=== PATIENT | male | born 1995 | race Two or more races ===

== ENCOUNTER 2017-01-03 16:10 | Emergency (ER) | payer OTHER ==
[2017-01-03 16:16] VITALS: BP 139/67; PULSE 68; RESP 16; TEMP 97.7; O2SAT 97
--- NOTE | 2017-01-03 16:26 | EDPHY ---
General Narrative: CHIEF COMPLAINT: Left ankle pain HISTORY OF PRESENT ILLNESS: Patient is playing soccer 2 days ago. When he jumped he landed awkwardly on the left ankle, likely inverting it. Since then he has had pain over the medial and lateral ankle. No pain in the left midfoot. No pain left heel. Two days ago was swollen and too severe to walk on. Today it is mildly improved. Able to walk if he uses only his heel. No numbness or tingling. No pain in the left knee or proximal fibula. No fall or trauma elsewhere. No other associated complaints or modifying factors. ESTABLISHED ORTHOPEDIST: None REVIEW OF SYSTEMS: Ten systems reviewed and are negative unless otherwise noted in the HPI PAST MEDICAL HISTORY: None PAST SURGICAL HISTORY: None SOCIAL HISTORY: Nonsmoker. Student at [employer]. FAMILY HISTORY: Noncontributory EXAMINATION General Appearance: Alert, no distress Cardiovascular: Pulses normal throughout. Symmetric DP pulses 2+. Symmetric PT pulses 2+. Brisk cap refill Neurological: A&O, great toe sensory symmetric. Ankle strength symmetric. No footdrop. Skin: Warm and dry, no rash. No laceration or puncture. No abrasion. No cellulitis or ecchymosis. Extremities: Tenderness over the left medial malleolus and left lateral malleolus. No left midfoot tenderness. No left heel tenderness. No tenderness of the left proximal fibula. Range of motion of the left ankle is symmetric to the right but painful. Neurovascular intact distal to the area of pain Psychiatric: Mood and affect normal DIFFERENTIAL DIAGNOSES: Including but not limited to ankle sprain, fracture, dislocation MDM: 4:20 p.m. Acute sprain of the left ankle from injury 2 days ago. X-ray has been ordered as he has difficulty ambulating on it without pain. Neurovascular intact. No injury to the left foot, heel or proximal fibula. No acute distress. 4:40 p.m. X-ray as read by me reveal some abnormal contour of the distal tibia without any fracture dislocation. Also appears to be a possibly chronic injury to the posterior talus. I do not appreciate any acute injury to the talus. I will place him in a Cato boot and crutches. Nonweightbearing until seen by Orthopedics for definitive care. Provide orthopedic follow-up information for him to contact tomorrow. ED precautions discussed. Recommend ice and elevation. Recommend ibuprofen. 4:55 p.m. Notified by RN that the patient declined a Chevy boot and crutches. He would like an Tanmay wrap only. There is no fracture identified on x-ray, thus this is an appropriate level of care for him. Continue with follow-up with orthopedic surgeon for definitive care ED Precautions: Worsening pain. Erythema, edema, cyanosis, pallor, paresthesia or anesthesia. - Diagnostics Imaging Results: Imaging Impressions Ankle X-Ray 01/03/17 16:16 Impression: Ankle sprain. - History Smoking Status: Never smoked - Objective Vital Signs: Initial Vital Signs Temperature (C) 97.7 F 01/03/17 16:13 Heart Rate 68 01/03/17 16:13 Respiratory Rate 16 01/03/17 16:13 Blood Pressure 139/67 H 01/03/17 16:13 O2 Sat (%) 97 01/03/17 16:13 O2 Delivery Mode Room Air Allergies/Adverse Reactions: No Known Allergies Allergy (Unverified 01/03/17 16:13) Home Medications: Medication Instructions Recorded NK [No Known Home Meds] 01/03/17 Departure - Departure Disposition: Home, Routine, Self-Care Clinical Impression: Sprain of ankle, left Qualifiers: Encounter type: initial encounter Involved ligament of ankle: unspecified ligament Qualified Code(s): S93.402A - Sprain of unspecified ligament of left ankle, initial encounter Condition: Good Instructions: Ankle Sprain (ED) Additional Instructions: 1. Nonweightbearing until seen by Orthopedics for definitive care 2. ED precautions for worsening pain, numbness, tingling, heel pain 3. Ice and elevate the extremity often 4. Ibuprofen 600 mg every 8 hours as needed for pain Referrals: Mauri Becker MD [Medical Doctor] - As per Instructions [facility],. [Clinic] - As per Instructions
[2017-01-03] MEDS: IBUPROFEN 600 MG TAB PO ONE ×2 (17:04→17:06)
== END 2017-01-03 17:07 | disposition home or self-care (01) ==
DX: S93.402A Sprain of unspecified ligament of left ankle, initial encounter (principal); W17.89XA Other fall from one level to another, initial encounter; Y93.39 Activity, other involving climbing, rappelling and jumping off